=== PATIENT | male | born 1955 | race Caucasian/White ===

== ENCOUNTER 2020-07-05 07:30 | Observation (INO) | payer OTHER, MEDICARE ==
[~2020-07-05] VITALS: Ht 190.5 cm; Wt 118.2 kg
[~2020-07-05 07:30] MED LIST: ALBU8HFA2 INH; ASPI81CH PO; ATOR20 PO; Cymbalta20 MG PO; DOCU100 PO; FERROUS GLUCON324 M6 PO; FLUT.05NI; FURO20 PO; GLIM4 PO; HYDACE10B PO; LIDO5TO TOP; LISI20 PO; MULTI-VITAMIN1 EAC2 PO; NOVOLIN 70100 UNIT/3 SC; OMEP20ER PO; SILD25T PO; TERBINAFINE15 GM TOP; TRAZ150T57 PO
--- NOTE | 2020-07-05 09:56 | NUR ---
Surgical site prepped with 2% Chlorhexidine cloth wipe. History, Chart, Medications and Allergies reviewed before start of procedure.Lungs clear T/O to Auscultation. Patient confirms NPO status and agrees with scheduled surgery. Patient reports completing Chlorhexadine shower X2 prior to admission to hospital. ALL BELONINGS PLACED UNDER THE BED. GAVE PO PRE MEDS WITHUT DIFFICULTY. PT ABLE TO MOVE ONTO BED AND STAND ON SCALE WITHOUT ASSISTANCE. ELECTRIC WHEELCHAIR TAGGED WITH NAME.
--- NOTE | 2020-07-05 10:34 | NUR ---
07/05/20 1034 Nam Blanco PT HAS A RIGHT BKA THEREFORE NO PAS STOCKING USED.
[2020-07-05 14:22] LABS: Hematocrit 36.4 % (37.0-53.0); Hemoglobin 11.9 g/dL (13.5-17.5); Mean Corpuscular HGB 28.8 pg (26.0-34.0); Mean Corpuscular HGB Conc 32.7 g/dL (31.5-36.5); Mean Corpuscular Volume 88 fL (80-100); Mean Platelet Volume 8.9 fL (9.1-12.4); Platelet Count 189 K/mm3 (150-400); RDW Coefficient Variation 18.2 % (11.7-14.2); RDW Standard Deviation 59.4 fL (35.1-46.3); Red Blood Cell Count 4.13 M/mm3 (4.30-5.90); White Blood Cell Count 7.94 K/mm3 (4.00-11.30)
[2020-07-05 14:43] LABS: Bun/Creatinine Ratio 14.1 (12.0-20.0); Calcium, Blood 8.3 mg/dL (8.5-10.1); Creatinine, Blood 1.84 mg/dL (0.60-1.20)
--- NOTE | 2020-07-06 06:49 | NUR ---
POD 1 S/P LEFT TOTAL ANKLE. PT VSS T/O NIGHT. SPLINT CDI. PT CONT TO REP MINIMAL SENSATION TO FOOT, DENIES N/T, WIGGLES TOES, CAP REFILL WNL. PAIN MGD PER EMAR W/REP RELIEF. PLAN TO WORK W/PT AND AWAIT D/C PALNNING TO VS [facility].
--- NOTE | 2020-07-06 19:15 | NUR ---
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
[2020-07-07 05:24] LABS: Hematocrit 33.5 % (37.0-53.0); Hemoglobin 10.6 g/dL (13.5-17.5); Mean Corpuscular HGB 28.5 pg (26.0-34.0); Mean Corpuscular HGB Conc 31.6 g/dL (31.5-36.5); Mean Corpuscular Volume 90 fL (80-100); Mean Platelet Volume 9.5 fL (9.1-12.4); Platelet Count 191 K/mm3 (150-400); RDW Coefficient Variation 17.8 % (11.7-14.2); RDW Standard Deviation 59.2 fL (35.1-46.3); Red Blood Cell Count 3.72 M/mm3 (4.30-5.90); White Blood Cell Count 7.68 K/mm3 (4.00-11.30)
[2020-07-07 05:42] LABS: Bun/Creatinine Ratio 18.1 (12.0-20.0); Calcium, Blood 8.1 mg/dL (8.5-10.1); Creatinine, Blood 1.49 mg/dL (0.60-1.20); Potassium, Blood 4.1 mmol/L (3.5-5.5)
[2020-07-07 11:36] LABS: Influenza A, PCR NEGATIVE (NEGATIVE); Influenza B, PCR NEGATIVE (NEGATIVE); Resp Syncytial Virus, PCR NEGATIVE (NEGATIVE); SARS-Cov-2 (COVID-19) PCR, MMC NEGATIVE (NEGATIVE)
--- NOTE | 2020-07-07 12:02 | NUR ---
PT OOB TO BSC W/ 1 PERSON STANDBY ASSIST, TOLERATED WELL, PT HAD A BM, STATES PAIN IS "TOLERABLE" AT THIS TIME AT 5/10, [facility], REPORT CALLED TO JESUS GOLDBERG AT THE [place].
--- NOTE | 2020-07-07 14:06 | NUR ---
OOB TO BSC THEN TO CHAIR TODAY, TOLERATED FAIRLY WELL WITH 1 PERSON ASSIST, PT RESTING IN BED, DENIES ANY NEED FOR PAIN MEDS AT THIS TIME.
--- NOTE | 2020-07-07 14:28 | NUR ---
[facility].
== END 2020-07-07 14:31 ==
LOC: UNDOADMOB 08:55 → SURS 08:55
PROVIDERS: Family Medicine; Nurse Practitioner Acute Care; Podiatrist Foot & Ankle Surgery; ADMIT Internal Medicine
PROC: 0SRG0JZ Replacement of Left Ankle Joint with Synthetic Substitute, Open Approach (ICD-10-PCS; principal; 2020-07-05 10:00)
PROC: 0L8T0ZZ Division of Left Ankle Tendon, Open Approach (ICD-10-PCS; principal; 2020-07-05 10:00)
DX: M19.072 Primary osteoarthritis, left ankle and foot (principal); M21.6X2 Other acquired deformities of left foot; I12.9 Hypertensive chronic kidney disease with stage 1 through stage 4 chronic kidney disease, or unspecified chronic kidney disease; E11.22 Type 2 diabetes mellitus with diabetic chronic kidney disease; N18.30 Chronic kidney disease, stage 3 unspecified; K21.9 Gastro-esophageal reflux disease without esophagitis; E78.5 Hyperlipidemia, unspecified; J44.9 Chronic obstructive pulmonary disease, unspecified; E66.01 Morbid (severe) obesity due to excess calories; G89.4 Chronic pain syndrome; G47.30 Sleep apnea, unspecified; Z89.511 Acquired absence of right leg below knee; Z68.33 Body mass index [BMI] 33.0-33.9, adult; Z79.4 Long term (current) use of insulin; Z88.6 Allergy status to analgesic agent; Z88.5 Allergy status to narcotic agent; Z87.891 Personal history of nicotine dependence; Z96.60 Presence of unspecified orthopedic joint implant; Z20.822 Contact with and (suspected) exposure to COVID-19
CPT/HCPCS: 0241U; 36415; 73600; 80048; 82947; 85027; 94640; 94760; 96372; 97110; 97161; 97530; A9270; C1776; G0378; J0171; J0690; J0735; J1100; J1650; J1815; J1885; J2250; J2370; J2405; J2704; J2765; J2795; J3010; J7120